=== PATIENT | female | born 1980 | race Asian ===

== ENCOUNTER 2017-05-15 00:57 | Emergency (ER) | payer BC ==
[~2017-05-15] VITALS: Ht 162.6 cm; Wt 73.0 kg
[2017-05-15] MEDS ORDERED: KETOROLAC 15MG/ML VIAL IV ONE (03:15)
[2017-05-15] MEDS ORDERED: SODIUM CHLORIDE 0.9% 1,000 ML IV ONE (03:15)
[2017-05-15] MEDS ORDERED: FAMOTIDINE 20MG/2ML VIAL IV ONE (03:15)
[2017-05-15] MEDS ORDERED: ONDANSETRON HCL 4MG/2ML VIAL IV ONE (03:15)
[2017-05-15 03:45] LABS: CHLORIDE 101 mEq/L (98-107)
[2017-05-15 06:00] VITALS: BP 115/75
== END 2017-05-15 06:00 | disposition home or self-care (01) ==
LOC: ER 00:57
DX: T62.8X1A Toxic effect of other specified noxious substances eaten as food, accidental (unintentional), initial encounter (principal); R10.13 Epigastric pain; R19.7 Diarrhea, unspecified; R11.2 Nausea with vomiting, unspecified; Y92.89 Other specified places as the place of occurrence of the external cause
CPT/HCPCS: 36415; 80053; 81025; 93005; 96361; 96374; 96375; 99285; J1885; J2405; J3490; J7030